=== PATIENT | male | born 1955 | race African-American/Black ===

== ENCOUNTER 2024-06-07 14:06 | Observation (INO) ==
[2024-06-07] MEDS: 0.9 % SODIUM CHLORIDE 1000 ML 1,000 ML IV STA (14:35)
--- NOTE | 2024-06-07 14:36 | Emergency Department Note ---
HPI - General Adult General Chief complaint: Weakness Stated complaint: fell last night, fatigue Time Seen by Provider: 06/07/24 14:11 Source: patient Mode of arrival: walk-in Limitations: no limitations History of Present Illness HPI narrative: This is a 68 year old male patient that presents to the ER with c/o falling last night due to feeling weak all over and fatigued. Patient denies any injury from the fall. Patient denies hitting his head or LOC. Patient denies any chest pain, SOB, abdominal pain, back pain, neck pain, numbness, tingling, cough, congestion or N/V/D Relieving factors: Reports none Exacerbating factors: Reports none Associated symptoms: Reports denies other symptoms Treatments prior to arrival: Reports none Related Data Allergies Allergy/AdvReac Type Severity Reaction Status Date / Time No Known Drug Allergies Allergy Verified 06/07/24 14:30 Review of Systems Status of ROS 10 or more systems reviewed and unremark able except as noted in history and below Constitutional Denies: fever, chills, change in weight, fatigue, malaise or night sweats Eyes Denies: change in vision, blurry vision, blind spots, light sensitivity, eye discomfort or eye discharge Ears, nose, mouth, and throat Denies: throat pain, neck pain, throat swelling, difficulty swallowing, hoarseness, mouth pain or swelling of lips/tongue Cardiovascular Denies: chest pain, palpitations, edema, swelling of feet/ankles, lightheadedness or shortness of breath with exertion Respiratory Denies: shortness of breath, cough, wheezing, stridor, pain on inspiration or change in phlegm color Gastrointestinal Denies: abdominal pain, nausea, vomiting, coffee grounds in vomit, heartburn, diarrhea or constipation Genitourinary Denies: painful urination, urinary frequency, urinary urgency, blood in urine, genital pain or genital lesion Musculoskeletal Denies: back pain, neck pain, extremity pain, extremity swelling, joint pain, limited range of motion or joint swelling Integumentary/Breast Denies: rash, itching, redness, skin pain, skin tenderness, skin swelling, sores, new lesion or changing lesion Neurological Denies: headache, numbness in extremities, weakness in extremities, lack of coordination, dizziness, vertigo, confusion, behavioral changes, slurred speech, difficulty communicating thoughts, seizure-like activity or involuntary movements Psychiatric Denies: anxiety, mood swings, panic attacks, change in sleep pattern, hopelessness, loss of interest, irritability or paranoia Endocrine Denies: excessive urination, excessive thirst, fatigue, cold intolerance, excessive sweating or flushing Hematologic/Lymphatic Denies: easy bruising, easy bleeding or enlarged lymph nodes Allergic/Immunologic Denies: hives, throat swelling, tongue swelling, facial swelling, wheezing or itchy eyes PFSH PFS Medical History (Updated 06/07/24 @ 14:34 by Riddhi Gentile RN) HTN (hypertension) Diabetes CAD (coronary artery disease) Surgical History (Updated 06/07/24 @ 15:18 by Luis Valentine LPN) Hx of kidney removal Social History Smoking status: never smoker Exam Constitutional: normal general appearance and no apparent distress Vital Signs - 24 hr 06/07/24 14:24 06/07/24 14:45 Temperature 98.1 F Pulse Rate 102 H 95 H Respiratory Rate 20 18 Blood Pressure 135/80 147/82 Pulse Oximetry 97 98 Oxygen Delivery Me thod Room Air Room Air HENMT: normocephalic, head/scalp atraumatic, hearing grossly normal bilaterally, external ears normal, nasal mucous membranes normal, external nose normal, oral mucous membranes normal and oropharynx normal Eyes: PERRL, EOMs intact bilaterally, conjunctivae normal and no scleral icterus Neck/C-Spine: visual inspection normal and trachea midline Lymph: no lymphadenopathy noted Chest: inspection of chest normal Respiratory: breath sounds equal bilaterally, normal respiratory effort, clear to auscultation bilaterally, no wheezes, no rales, no retractions, no use of accessory muscles and chest percussion normal Cardiovascular: normal heart rate noted, regular rhythm noted, no gallop, no rub, no murmur, no JVD, no clicks, peripheral pulses 2+ throughout, no bruits noted and no additional abnormal heart sounds Gastrointestinal: abdomen normal to inspection, abdomen soft to palpation, nontender to palpation, nontender to percussion, nondistended, normoactive bowel sounds, no hepatosplenomegaly, no masses, no pulsatile mass, no ascites and no hernia Genitourinary: no CVA tenderness Back/Pelvis: spine normal to inspection Extremities: normal to inspection (for patient), normal to palpation, no tenderness, full ROM, no joint enlargement and no deformity hx left foot all toes amputation Neurology: warehouse shipping supervisor II-XII intact, no movement abnormality noted, no focal motor deficit noted, no sensory deficits noted, gait normal (normal for patient), speech normal, coordination normal, no pronator drift noted, no fasciculations noted and GCS normal Psychiatry: mental status grossly normal, oriented x3, thought process normal, cooperative and affect normal Skin: skin color normal Course Course Hospital Course: 1529: VSS, no s/s of acute distress noted, will admit due to ARF and dehydration for further evaluation and treatment Vital Signs Vital signs: Vital Signs Temperature 98.1 F 06/07/24 14:24 Pulse Rate 102 H 06/07/24 14:24 Respiratory Rate 20 06/07/24 14:24 Blood Pressure 135/80 06/07/24 14:24 Pulse Oximetry 97 06/07/24 14:24 Oxygen Delivery Method Room Air 06/07/24 14:24 Temperature 98.1 F 06/07/24 14:24 Pulse Rate 95 H 06/07/24 14:45 Respiratory Rate 18 06/07/24 14:45 Blood Pressure 147/82 06/07/24 14:45 Pulse Oximetry 98 06/07/24 14:45 Oxygen Delivery Method Room Air 06/07/24 14:45 Medical Decision Making Differential Diagnosis Differential Diagnosis: viral illness, dehydration, fatigue Medical Records Medical records reviewed: Yes I reviewed the patient's medical records Lab Data Lab results reviewed: Yes I reviewed the patient's lab results Labs: Lab Results 06/07/24 Range/Units 14:31 WBC 12.8 H (3.7-9.6) K/uL RBC 3.9 L (4.40-5.80) M/uL Hgb 11.3 L (14.0-17.4) gm/dL Hct 32.7 L (41.3-50.1) % MCV 84.5 (81.9-96.5) fl MCH 29.1 (27.6-33.7) pg MCHC 34.4 (33.0-35.7) g/dl RDW 13.8 (11.0-14.8) % Plt Count 220 (142-355) K/uL MPV 7.4 (6.0-10.4) fl Gran % 71.6 (49.1-73.1) % Lymph % (Auto) 17.2 L (17.6-39.05) % Vance % (Auto) 10.0 (4.5-10.7) % Eos % (Auto) 0.8 (0.0-4.0) % Baso % (Auto) 0.4 (0.0-1.3) Lymph # (Auto) 2.2 (0.8-2.9) Vance # (Auto) 1.3 H (0.2-0.8) Eos # (Auto) 0.1 (0.0-0.3) Baso # (Auto) 0.0 (0.0-0.1) Absolute Gran (auto) 9.2 H (2.0-6.2) Sodium 142 (136-145) mmol/L Potassium 3.9 (3.6-5.2) mmol/L Chloride 107.0 (98-107) mmol/L Carbon Dioxide 27 (21-32) mmol/L Anion Gap 8.0 (4-14) mEq/L BUN 17 (7-18) mg/dL Creatinine 1.9 H (0.6-1.3) mg/dL Estimated GFR 38.2 (>59.9) Glucose 141 H (70-110) mg/dL Calcium 9.0 (8.5-10.1) mg/dL Total Bilirubin 0.54 (0.0-1.0) mg/dL AST 17 (15-37) U/L ALT 26 L (30-65) U/L Alkaline Phosphatase 100 (50-136) U/L Troponin I High Sens 11.30 (4.0-60.4) ng/L Total Protein 7.9 (6.4-8.2) g/dL Albumin 3.8 (3.4-5.0) g/dL Imaging Data Chest x-ray: Attestation: I have reviewed the pertinent imaging results. ECG Data Attestation: I have reviewed the pertinent ECG results. Discharge Plan Discharge Patient Disposition: Admitted As Observation Condition: Stable Chief Complaint: Weakness Clinical Impression: Acute dehydration, Acute renal failure, Generalized weakness Print Language: Czech Referrals: Chante Mcclure [Primary Care Provider] - Time of Disposition: 15:30
[2024-06-07 14:51] LABS: Potassium 3.9 mmol/L (3.6-5.2)
[2024-06-07 14:52] LABS: Basophils%(Percent) Auto 0.4 (0.0-1.3); Eosinophils#(Absolute)Auto 0.1 (0.0-0.3); Eosinophils%(Percent) Auto 0.8 % (0.0-4.0); Granulocytes % - Auto 71.6 % (49.1-73.1); Granulocytes#(Absolute)- Auto 9.2 (2.0-6.2); Hematocrit 32.7 % (41.3-50.1); Mean Corpuscular Volume 84.5 fl (81.9-96.5); Monocytes #(Absolute)- Auto 1.3 (0.2-0.8); Platelet Count 220 K/uL (142-355); White Blood Count 12.8 K/uL (3.7-9.6)
[2024-06-07 15:48] LABS: Urine Appearance CLEAR (CLEAR); Urine Blood NEGATIVE (NEG - TRACE); Urine Color YELLOW (STRAW/YELL.); Urine Urobilinogen Normal (NORMAL)
[2024-06-07] MEDS ORDERED: ACETAMINOPHEN 500 MG TABLET PO PRN (16:29)
[2024-06-07] MEDS ORDERED: MAGNESIUM, ALUMINUM HYDROXIDE 30 ML ORAL.SUSP PO PRN (16:29)
[2024-06-07] MEDS ORDERED: bisacodyL 10 MG SUPP.RECT PR PRN (16:29)
[2024-06-07] MEDS: carvediloL 25 MG TABLET PO SCH (17:18)
[2024-06-07] MEDS: 0.9 % SODIUM CHLORIDE 1000 ML 1,000 ML IV SCH (17:18)
[2024-06-07] MEDS: HYDRALAZINE HCL 25 MG TABLET PO SCH (21:00)
[2024-06-08 05:14] LABS: Basophils%(Percent) Auto 0.3 (0.0-1.3); Eosinophils#(Absolute)Auto 0.1 (0.0-0.3); Eosinophils%(Percent) Auto 1.2 % (0.0-4.0); Granulocytes % - Auto 67.3 % (49.1-73.1); Granulocytes#(Absolute)- Auto 6.4 (2.0-6.2); Hematocrit 28.2 % (41.3-50.1); Mean Corpuscular Volume 84.8 fl (81.9-96.5); Monocytes #(Absolute)- Auto 0.8 (0.2-0.8); Monocytes %(Percent)- Auto 8.1 % (4.5-10.7); Platelet Count 168 K/uL (142-355); White Blood Count 9.5 K/uL (3.7-9.6)
[2024-06-08 05:36] LABS: Potassium 3.6 mmol/L (3.6-5.2)
[2024-06-08] MEDS: ENOXAPARIN SODIUM 40 MG/0.4 ML SYRINGE SUBQ SCH (09:53)
[2024-06-08] MEDS: PANTOPRAZOLE SODIUM 40 MG TABLET.DR PO SCH (09:53)
--- NOTE | 2024-06-08 12:36 | Short Stay Summary ---
H&P: HPI History of Present Illness Chief complaint: dehydration, ARF, gen weakness Narrative: This is a 68 year old male patient that presents to the ER with c/o falling last night due to feeling weak all over and fatigued. Patient denies any injury from the fall. Patient denies hitting his head or LOC. Patient denies any chest pain, SOB, abdominal pain, back pain, neck pain, numbness, tingling, cough, congestion or N/V/D. Admitted patient to med/surg floor for observation and treatment. Day one of hospital stay, patient reports he is feeling a lot better after receiving fluids. Patient is ready to discharge home for self care. Follow up with PCP in 5-7 days of discharge. Review of Systems Status of ROS 10 or more systems reviewed and unremark able except as noted in history and below Constitutional Denies: fever, chills, change in weight, fatigue, malaise or night sweats Eyes Denies: change in vision, blurry vision, blind spots, light sensitivity, eye discomfort or eye discharge Ears, nose, mouth, and throat Denies: throat pain, neck pain, throat swelling, difficulty swallowing, hoarseness, mouth pain, swelling of lips/tongue or vertigo Cardiovascular Denies: chest pain, palpitations, edema, swelling of feet/ankles, lightheadedness or shortness of breath with exertion Respiratory Denies: shortness of breath, cough, wheezing, stridor, pain on inspiration or change in phlegm color Gastrointestinal Denies: abdominal pain, nausea, vomiting, coffee grounds in vomit, heartburn, diarrhea, constipation or difficulty swallowing Genitourinary Denies: painful urination, urinary frequency, urinary urgency, blood in urine, genital pain or genital lesion Musculoskeletal Denies: back pain, neck pain, extremity pain, extremity swelling, joint pain, limited range of motion or joint swelling Integumentary/Breast Denies: rash, itching, redness, skin pain, skin tenderness, skin swelling, sores, new lesion or changing lesion Neurological Denies: headache, numbness in extremities, weakness in extremities, lack of coordination, dizziness, vertigo, confusion, behavioral changes, slurred speech, difficulty communicating thoughts, seizure-like activity or involuntary movements Psychiatric Denies: anxiety, mood swings, panic attacks, change in sleep pattern, hopelessness, loss of interest, irritability or paranoia Endocrine Denies: excessive urination, excessive thirst, fatigue, cold intolerance, excessive sweating or flushing Hematologic/Lymphatic Denies: easy bruising, easy bleeding or enlarged lymph nodes Allergic/Immunologic Denies: hives, throat swelling, tongue swelling, facial swelling, wheezing or itchy eyes PFSH PFSH Medical History HTN (hypertension) Diabetes CAD (coronary artery disease) Surgical History Hx of kidney removal Social History Smoking status: never smoker Problems where you live: no known problems Highest level of school completed/degree received: high school Meds Home Medications and Allergies Home Medications Medication Instructions Recorded Confirmed Type aspirin 81 mg chewable tablet 81 mg PO DAILY 06/08/24 06/08/24 History atorvastatin 10 mg tablet 10 mg PO BEDTIME 06/08/24 06/08/24 History carvedilol 25 mg tablet 25 mg PO DAILY 06/08/24 06/08/24 History cyproheptadine 4 mg tablet 4 mg PO BID 06/08/24 06/08/24 History ergocalciferol (vitamin D2) 1,250 50,000 unit PO Q7D 06/08/24 06/08/24 History mcg (50,000 unit) capsule ferrous sulfate 325 mg (65 mg 325 mg PO DAILY 06/08/24 06/08/24 History iron) tablet (FeroSul) gabapentin 100 mg capsule 100 mg PO BID 06/08/24 06/08/24 History hydralazine 25 mg tablet 25 mg PO Q8H 06/08/24 06/08/24 History hydrocodone 7.5 mg-acetaminophen 1 tab PO Q12H PRN pain 06/08/24 06/08/24 History 325 mg tablet losartan 50 mg tablet 50 mg PO DAILY htn #30 tabs 06/08/24 Rx montelukast 10 mg tablet 10 mg PO BEDTIME 06/08/24 06/08/24 History multivitamin combination 1 tab PO DAILY anemia #30 tabs 06/08/24 Rx no.61-folic acid 1,000 mcg tablet pantoprazole 40 mg tablet,delayed 40 mg PO DAILY 06/08/24 06/08/24 History release quetiapine 25 mg tablet 25 mg PO BEDTIME 06/08/24 06/08/24 History Allergies Allergy/AdvReac Type Severity Reaction Status Date / Time No Known Drug Allergies Allergy Verified 06/07/24 14:30 Exam Exam: Patient resting in devi's position in a positive disposition upon entering room for exam. Constitutional: normal general appearance, no apparent distress, abnormal body habitus (overweight), no limitations and alert Vital Signs - 24 hr 06/07/24 14:24 06/07/24 14:45 06/07/24 15:30 Temperature 98.1 F Pulse Rate 102 H 95 H 80 Pulse Rate [Left B rachial] Respiratory Rate 20 18 18 Blood Pressure 135/80 147/82 156/85 Blood Pressure [Le ft Arm] Pulse Oximetry 97 98 98 Oxygen Delivery Me thod Room Air Room Air Room Air 06/07/24 16:38 06/07/24 17:18 06/07/24 17:18 Temperature 98.1 F Pulse Rate 80 89 Pulse Rate [Left B rachial] 89 Respiratory Rate 18 19 Blood Pressure 156/85 170/93 Blood Pressure [Le ft Arm] 170/93 Pulse Oximetry 98 99 Oxygen Delivery Me thod Room Air 06/07/24 17:18 06/07/24 20:00 06/07/24 21:00 Temperature 98.5 F Pulse Rate Pulse Rate [Left B rachial] 87 Respiratory Rate 17 Blood Pressure 157/82 Blood Pressure [Le ft Arm] 157/82 Pulse [facility]ximetry 98 [facility] 06/07/24 23:48 06/08/24 04:00 06/08/24 08:00 Temperature 98.5 F 98.5 F 97.5 F L Pulse Rate Pulse Rate [Left B rachial] 87 80 84 Respiratory Rate 19 18 20 Blood Pressure Blood Pressure [Le ft Arm] 150/84 162/72 161/87 Pulse Oximetry 98 98 96 Oxygen Delivery Nc thod Room Air Room Air Room Air 06/08/24 09:53 06/08/24 09:53 Temperature Pulse Rate 84 Pulse Rate [Left B rachial] Respiratory Rate Blood Pressure 161/87 161/87 Blood Pressure [Le ft Arm] Pulse Oximetry Oxygen Delivery Me thod HENMT: normocephalic, head/scalp atraumatic, hearing grossly normal bilaterally, external ears normal, nasal mucous membranes normal, external nose normal, oral mucous membranes normal and oropharynx normal Eyes: PERRL, EOMs intact bilaterally, conjunctivae normal and no scleral icterus Neck/C-Spine: visual inspection normal and trachea midline Lymph: no lymphadenopathy noted Chest: inspection of chest normal Respiratory: breath sounds equal bilaterally, normal respiratory effort, clear to auscultation bilaterally, no wheezes, no rales, no retractions, no use of accessory muscles and chest percussion normal Cardiovascular: normal heart rate noted, regular rhythm noted, no gallop, no rub, no murmur, no JVD, no clicks, peripheral pulses 2+ throughout, no bruits noted and no additional abnormal heart sounds Gastrointestinal: abdomen normal to inspection, abdomen soft to palpation, nontender to palpation, nontender to percussion, nondistended, normoactive bowel sounds, no hepatosplenomegaly, no masses, no pulsatile mass, no ascites and no hernia Genitourinary: no CVA tenderness Back/Pelvis: spine normal to inspection Extremities: normal to inspection (for patient), normal to palpation, no tenderness, full ROM, no joint enlargement and no deformity hx left foot all toes amputation Neurology: trolley operator II-XII intact, no movement abnormality noted, no focal motor deficit noted, no sensory deficits noted, gait normal (normal for patient), speech normal, coordination normal, no pronator drift noted, no fasciculations noted and GCS normal Psychiatry: mental status grossly normal, oriented x3, thought process normal, cooperative and affect normal Skin: skin color normal Assessment and Plan Assessment and Plan (1) Dehydration: Code(s): E86.0 - Dehydration (2) Acute renal failure: Qualifiers: Acute renal failure type: unspecified Qualified Code(s): N17.9 - Acute kidney failure, unspecified Code(s): N17.9 - Acute kidney failure, unspecified (3) Fall from other slipping, tripping, or stumbling: Code(s): W01.0XXA - Fall on same level from slipping, tripping and stumbling without subs equent striking against object, initial encounter (4) General weakness: Code(s): R53.1 - Weakness (5) Anemia: Qualifiers: Anemia type: unspecified type Qualified Code(s): D64.9 - Anemia, unspecified Code(s): D64.9 - Anemia, unspecified (6) Hyperglycemia: Code(s): R73.9 - Hyperglycemia, unspecified (7) Hypocalcemia: Code(s): E83.51 - Hypocalcemia (8) Hypoalbuminemia: Code(s): E88.09 - Other disorders of plasma-protein metabolism, not elsewhere classified (9) HTN (hypertension): Qualifiers: Hypertension type: primary hypertension Qualified Code(s): I10 - Essential (primary) hypertension Code(s): I10 - Essential (primary) hypertension (10) Diabetes: Qualifiers: Diabetes mellitus complication status: with hyperglycemia Diabetes mellitus dedicated intermodal truck driver insulin use: unspecified dedicated intermodal truck driver insulin use status Diabetes mellitus type: type 2 Qualified Code(s): E11.65 - Type 2 diabetes mellitus with hyperglycemia Code(s): E11.9 - Type 2 diabetes mellitus without complications (11) CAD (coronary artery disease): Qualifiers: Associated angina: unspecified whether angina present Coronary Disease- Associated Artery/Lesion type: [place] artery [place] vs. transplanted heart: [place] heart Qualified Code(s): I25.10 - Atherosclerotic heart disease of [place] coronary artery without angina pectoris Code(s): I25.10 - Atherosclerotic heart disease of [place] coronary artery without angina pectoris Plan Sodium Chloride 1,000 mls @ 100 mls/hr IV CONT after bolus Carvedilol 25 mg PO TID Pantoprazole Sodium 40 mg PO BID Enoxaparin Sodium 40 mg SUBQ DAILY Acetaminophen 500 mg PO Q6H PRN Magnesium Hydroxide 30 ml PO DAILY PRN Bisacodyl 10 mg HI DAILY PRN Discharge home for self care. Results Labs Labs: CBC WBC 9.5 K/uL (3.7-9.6) 06/08/24 05:06 RBC 3.3 M/uL (4.40-5.80) L 06/08/24 05:06 Hgb 10.0 gm/dL (14.0-17.4) L 06/08/24 05:06 Hct 28.2 % (41.3-50.1) L 06/08/24 05:06 MCV 84.8 fl (81.9-96.5) 06/08/24 05:06 MCH 30.0 pg (27.6-33.7) 06/08/24 05:06 MCHC 35.4 g/dl (33.0-35.7) 06/08/24 05:06 RDW 13.3 % (11.0-14.8) 06/08/24 05:06 Plt Count 168 K/uL (142-355) 06/08/24 05:06 MPV 6.7 fl (6.0-10.4) 06/08/24 05:06 Gran % 67.3 % (49.1-73.1) 06/08/24 05:06 Lymph % (Auto) 23.1 % (17.6-39.05) 06/08/24 05:06 [place] % (Auto) 8.1 % (4.5-10.7) 06/08/24 05:06 Eos % (Auto) 1.2 % (0.0-4.0) 06/08/24 05:06 Baso % (Auto) 0.3 (0.0-1.3) 06/08/24 05:06 Lymph # (Auto) 2.2 (0.8-2.9) 06/08/24 05:06 [place] # (Auto) 0.8 (0.2-0.8) 06/08/24 05:06 Eos # (Auto) 0.1 (0.0-0.3) 06/08/24 05:06 Baso # (Auto) 0.0 (0.0-0.1) 06/08/24 05:06 Absolute Gran (auto) 6.4 (2.0-6.2) H 06/08/24 05:06 BMP Sodium 143 mmol/L (136-145) 06/08/24 05:06 Potassium 3.6 mmol/L (3.6-5.2) 06/08/24 05:06 Chloride 108.0 mmol/L (98-107) H 06/08/24 05:06 Carbon Dioxide 24 mmol/L (21-32) 06/08/24 05:06 Anion Gap 11.0 mEq/L (4-14) 06/08/24 05:06 BUN 14 mg/dL (7-18) 06/08/24 05:06 Creatinine 1.6 mg/dL (0.6-1.3) H 06/08/24 05:06 Estimated GFR 46.9 (>59.9) 06/08/24 05:06 Glucose 161 mg/dL (70-110) H 06/08/24 05:06 Calcium 8.2 mg/dL (8.5-10.1) L 06/08/24 05:06 Total Bilirubin 0.40 mg/dL (0.0-1.0) 06/08/24 05:06 AST 11 U/L (15-37) L 06/08/24 05:06 ALT 19 U/L (30-65) L 06/08/24 05:06 Alkaline Phosphatase 81 U/L (50-136) 06/08/24 05:06 Total Protein 6.8 g/dL (6.4-8.2) 06/08/24 05:06 Albumin 3.1 g/dL (3.4-5.0) L 06/08/24 05:06 Cardiac Enzymes Troponin I High Sens 11.30 ng/L (4.0-60.4) 06/07/24 14:31 Liver Function Total Bilirubin 0.40 mg/dL (0.0-1.0) 06/08/24 05:06 AST 11 U/L (15-37) L 06/08/24 05:06 ALT 19 U/L (30-65) L 06/08/24 05:06 Alkaline Phosphatase 81 U/L (50-136) 06/08/24 05:06 Total Protein 6.8 g/dL (6.4-8.2) 06/08/24 05:06 Albumin 3.1 g/dL (3.4-5.0) L 06/08/24 05:06 Urine Urine Color Yellow (STRAW/YELL.) 06/07/24 15:29 Urine Appearance Clear (CLEAR) 06/07/24 15:29 Ur Specific [place] 1.010 (1.001-1.035) 06/07/24 15: Urine Protein Negative (NEGATIVE) 06/07/24 15: Urine Glucose (UA) Normal (NORMAL) 06/07/24 15: Urine Ketones Negative (NEGATIVE) 06/07/24 15: Urine Occult Blood Negative (NEG - TRACE) 06/07/24 15: Urine Nitrite Negative (NEGATIVE) 06/07/24 15: Urine Bilirubin Negative (NEGATIVE) 06/07/24 15:29 Urine Urobilinogen Normal (NORMAL) 06/07/24 15:29 Ur Leukocyte Esterase Negative (NEGATIVE) 06/07/24 15:29 Imaging Imaging ordered: Chest x-ray and CT scan - head Radiologist's impression: XR CHEST 1V Date of Service: 06/07/24 HISTORY: weakness; COMPARISON: September 13, 2023 FINDINGS: The trachea is midline. The cardiac silhouette is borderline in size. The lungs are clear without focal infiltrate or effusion. The bony thorax is unremarkable. IMPRESSION: No acute cardiopulmonary disease. CT HEAD/BRAIN WO CON Date of Service: 06/07/24 HISTORY: Trauma COMPARISON: 09/13/2023 TECHNIQUE: Multiple axial images of the brain were obtained from the skull base to the vertex without administration of IV contrast. Dose reduction techniques including Automated Exposure Control (AEC) and adjustment of mA and kV were utilized. FINDINGS: No acute intraparenchymal hemorrhage or mass can be identified. No extra-axial fluid collections are seen. No alteration in the attenuation of the brain parenchyma can be identified to suggest acute or subacute ischemic change. The ventricular system is symmetric and nondilated. There is chronic periventricular white matter disease observed and age-appropriate generalized atrophy. IMPRESSION: 1. No acute intracranial process can be identified. 2. 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 3. Age-appropriate atrophic changes are seen. DS: Providers Provider Date of admission: 06/07/24 15:32 Primary care physician: Chante Mcclure Admitting clinician: Janine Gage Attending physician on admission: Margo Hogan Attending physician on discharge: Margo Hogan Discharging clinician: Margo Hogan Anticipated date of discharge: 06/08/24 DS: Summary Hospital Course Hospital Course: This is a 68 year old male patient that presents to the ER with c/o falling last night due to feeling weak all over and fatigued. Patient denies any injury from the fall. Patient denies hitting his head or LOC. Patient denies any chest pain, SOB, abdominal pain, back pain, neck pain, numbness, tingling, cough, congestion or N/V/D. Admitted patient to med/surg floor for observation and treatment. Day one of hospital stay, patient reports he is feeling a lot better after receiving fluids. Patient is ready to discharge home for self care. Follow up with PCP in 5-7 days of discharge. Status at Discharge Functional status at discharge: independent ambulation Overall status at discharge: patient is back to baseline Time Spent with Patient Time attestation: Total time spent providing and/or coordinating discharge services: Discharge Plan Discharge Disposition: Home, Self-Care Condition: Stable Discharge Medications: New losartan 50 mg tablet 50 mg PO DAILY Qty: 30 0RF multivit comb no.61-folic acid 1,000 mcg tablet 1 tab PO DAILY Qty: 30 0RF Continued aspirin 81 mg tablet,chewable 81 mg PO DAILY Patient Comments: CHEW AND SWALLOW 1 TABLET BY MOUTH ONCE DAILY atorvastatin 10 mg tablet 10 mg PO BEDTIME Patient Comments: TAKE 1 TABLET BY MOUTH EVERY DAY AT BEDTIME carvedilol 25 mg tablet 25 mg PO DAILY Patient Comments: TAKE 1 TABLET BY MOUTH ONCE DAILY WITH FOOD cyproheptadine 4 mg tablet 4 mg PO BID Patient Comments: TAKE 1 TABLET BY MOUTH TWICE DAILY TO INCREASE APPETITE ergocalciferol (vitamin D2) 1,250 mcg (50,000 unit) capsule 50,000 unit PO Q7D Patient Comments: TAKE 1 CAPSULE BY MOUTH ONCE A WEEK ferrous sulfate [FeroSul] 325 mg (65 mg iron) tablet 325 mg PO DAILY Patient Comments: TAKE 1 TABLET BY MOUTH ONCE DAILY gabapentin 100 mg capsule 100 mg PO BID Patient Comments: TAKE 1 CAPSULE BY MOUTH TWICE DAILY hydralazine 25 mg tablet 25 mg PO Q8H Patient Comments: TAKE 1 TABLET BY MOUTH EVERY 8 HOURS WITH FOOD FOR 30 DAYS hydrocodone-acetaminophen 7.5-325 mg tablet 1 tab PO Q12H PRN (Reason: pain) Patient Comments: TAKE 1 TABLET BY MOUTH EVERY 12 HOURS NEEDED montelukast 10 mg tablet 10 mg PO BEDTIME pantoprazole 40 mg tablet,delayed release (DR/EC) 40 mg PO DAILY Patient Comments: TAKE 1 TABLET BY MOUTH ONCE DAILY quetiapine 25 mg tablet 25 mg PO BEDTIME Patient Comments: TAKE 1 TABLET BY MOUTH AT BEDTIME Discontinued azithromycin 250 mg tablet See Rx Instructions .ROUTE .COMPLEX Patient Comments: TAKE 2 TABLETS BY MOUTH ON DAY 1, AND THEN TAKE 1 TABLET BY MOUTH ONCE A DAY ON DAY 2 THROUGH DAY 5 Rx Instructions: TAKE 2 TABS ON DAY, THEN 1 TAB ON DAYS 2-5; lisinopril 20 mg tablet 20 mg PO DAILY Patient Comments: TAKE 1 TABLET BY MOUTH ONCE DAILY Ozempic 1 mg/dose (4 mg/3 mL) pen injector 1 mg SUBCUT Q7D Patient Comments: INJECT 1 MG SUBCUTANEOUSLY ONCE A WEEK Discharge Orders: Discharge Order (Routine); Ordered 06/08/24 Ordered By: Margo Hogan Activity: increase activity as tolerated Diet: diabetic diet and low fat, low cholesterol Interventions: MED/SURG & ICU Observation Charge Sheet Last Done: 06/07/24 17:57 Activity Restrictions/Additional Instructions: increase water and electrolyte drinks in diet avoid sodas follow up PCP in 3-5 days needs nuclear stress test, carotids and abdominal aortic screen protein supplements bid BP and pulse and BS journal to take back to his PCP for medication adjustment and to see how lisinopril changed to losartan is doing for the patient make sure rugs are secured or out of the way and place furniture to avoid risks Forms: Portal/Health Info Access Inst Follow-Ups: Chante Mcclure [Primary Care Provider] -
[2024-06-08 13:26] VITALS: BP 163/75; PULSE 85; RESP 19; TEMP 98.3
== END 2024-06-08 14:49 | disposition home or self-care (01) ==
LOC: ED 14:06 → MS 14:06
PROVIDERS: ADMIT Family Medicine; ATTEND Family Medicine